=== PATIENT | male | born 1950 | race Caucasian/White ===

== ENCOUNTER 2025-04-14 06:33 | Inpatient (IN) ==
--- NOTE | 2025-04-01 09:12 | PAT Medication Instructions ---
Medication Instructions Date of Service April 01, 2025 Home Medications amlodipine 2.5 mg tablet 2.5 mg PO QAM aspirin 81 mg capsule 81 mg PO HS atenolol 25 mg tablet 12.5 mg PO HS cholecalciferol (vitamin D3) 125 mcg (5,000 unit) tablet (Vitamin D3) 125 mcg PO DAILY evolocumab 140 mg/mL subcutaneous pen injector (Repatha SureClick) 140 mg subcut MO metformin 500 mg tablet 500 mg PO HS pantoprazole 40 mg tablet,delayed release 40 mg PO QAM ASK your prescriber and surgeon aspirin 81 mg capsule 81 mg PO HS evolocumab 140 mg/mL subcutaneous pen injector (Repatha SureClick) 140 mg subcut MO DO NOT take the morning of surgery cholecalciferol (vitamin D3) 125 mcg (5,000 unit) tablet (Vitamin D3) 125 mcg PO DAILY Take morning of surgery With a small sip of water, OTHERWISE NOTHING TO EAT OR DRINK AFTER MIDNIGHT: amlodipine 2.5 mg tablet 2.5 mg PO QAM pantoprazole 40 mg tablet,delayed release 40 mg PO QAM Take evening before surgery atenolol 25 mg tablet 12.5 mg PO HS metformin 500 mg tablet 500 mg PO HS Other Notes If you have any questions please call us at [phone] or [phone] or [phone] or [phone]
--- NOTE | 2025-04-05 08:25 | Anesthesiology Consultation ---
Date of Service April 05, 2025 Assessment & Plan (1) Encounter for pre-operative examination: Chart Review Chart Review: Acceptable Risk for Surgery (pending surgeon ordered PCP clearance ) and Patient seen in Pre Admission Testing - Awaiting PCP clearance 04/07/25 ([facility]) - please fax preop testing to PCP for review - Check BSG AM DOS Per PAT appt on 04/05/25, patient with recent cold (symptoms began 03/25/25- cough has resolved, only mild residual congestion (improving) per patient. No recent illness/disease exposures, or recent illness/disease positive tests. Will leave to surgeon's discretion if preop Covid testing needed. Symptom onset >11 days from DOS. Symptoms improving. Patient educated symptoms will need resolved by DOS Cardio Clearance letter 03/16/25= " "Intermediate cardiac risk" for upcoming procedure. Hold ASA for three days." Cardiology office visit 03/15/25= "follow up appointment... CAD... 60-65% stenosis in ostial RCA with nonobstructive disease in the LAD and diagonal...denies any symptoms of ACS... all testing and medications reviewed with patient... recommend ECHO and carotid ultrasound and follow in one year..." History Surgery Operation Date: 04/14/25 10:35 Proposed Procedures p L3-S1 Decompression and Fusion - Eugene Scanlon DO Height/Weight Height: 5 ft 9 in Weight: 85.1 kg Allergies Allergy/AdvReac Type Severity Reaction Status Date / Time No Known Allergies Allergy Verified 09/03/02 17:49 BEE STINGS-HIVES Allergy Unknown Uncoded 09/03/02 17:56 Medications Home Medications Medication Instructions Recorded Confirmed Last Taken amlodipine 2.5 mg tablet 2.5 mg PO QAM 04/01/25 04/01/25 Unknown aspirin 81 mg capsule 81 mg PO HS 04/01/25 04/01/25 Unknown atenolol 25 mg tablet 12.5 mg PO HS 04/01/25 04/01/25 Unknown cholecalciferol (vitamin D3) 125 125 mcg PO DAILY 04/01/25 04/01/25 Unknown mcg (5,000 unit) tablet (Vitamin D3) evolocumab 140 mg/mL subcutaneous 140 mg subcut MO 04/01/25 04/01/25 Unknown pen injector (Repatha SureClick) metformin 500 mg tablet 500 mg PO HS 04/01/25 04/01/25 Unknown pantoprazole 40 mg tablet,delayed 40 mg PO QAM 04/01/25 04/01/25 Unknown release Past Medical History Medical History (Updated 04/05/25 @ 08:22 by Avis Dutta PA-C) Teixeira esophagus follows routinely with EGDs CAD (coronary artery disease) - 60-65% stenosis in the ostial RCA with non obstructive disease in the LAD and diagonal per 2022 cardiac cath per cardio records Carotid artery disease <50% stenosis to bilateral ICAs per 01/2025 carotid doppler Chronic rhinitis Dyslipidemia Environmental and seasonal allergies GERD (gastroesophageal reflux disease) well controlled and stable with pantoprazole History of prostate cancer 2010- s/p prostatectomy - no chemo or XRT HTN (hypertension) Low back pain radiating down bilat legs Pre-diabetes on Metformin Exercise / Class Metabolic Activity II 4-5 Yardwork/Stairs/Walk up hill (one flight of stairs- no chest pain or SOB ) Past Surgical History Surgical History Hx of cardiac catheterization unsure thinks no stents, "contact cardio office" Hx of cholecystectomy Hx of colonoscopy Hx of prostatectomy 2010 Hx of right knee surgery meniscus repair Hx of shoulder surgery x 3 Past Anesthesia History No Hx of Anesthesia Complications (with exception to extra grogginess with last surgery (shoulder surgery- 2019)) and No Family Hx of Anesthesia Complications History of PONV No Hx of PONV and No Hx of Motion Sickness Social History Smoking Status: Never smoker Do You Dip or Chew Tobacco: No Hx Alcohol Use: Yes Alcohol type: wine alcohol intake frequency: holidays/special occasions only Hx Substance Use: No substance use type: does not use Review of Systems - Congestion- cold symptoms since 03/25/25- cough resolved. - Hx of snoring - hx of sleep study many years ago- no JOSEFA at that time Patient denies chest pain, shortness of breath, dyspnea on exertion, wheezing, palpitations. No hx of seizures, stroke, OK. No hx of blood clots or blood transfusions Physical Exam Vital Signs VITALS BP 162/86 (usually well controlled per patient - usually 120-130s/80s) P 62 TEMP 97.6 SP02 97% RES 16P Constitutional no acute distress ENMT Mouth: no TMJ clicking Thyromental Distance: > or= 3.5 Finger Breadths (3.5) Mallampati Class: II Missing molars Crowns to side teeth and crowns Neck + limited neck extension Respiratory normal respiratory effort; no respiratory distress Auscultation: lungs clear to auscultation bilaterally; no wheezes Cardiovascular Rate/Rhythm: regular rate and regular rhythm Heart Sounds: no murmur Vessels: no carotid bruit Heart sounds diminished throughout Musculoskeletal Spine: no pain with cervical ROM Extremities: extremities normal to inspection Psychiatric Orientation: alert Lab Results Anesthesia Preop Results Results Anesthesia Widget: WBC 5.19 K/ul (4.8-10.8) 04/05/25 Hgb 15.7 g/dl (14.0-18.0) 04/05/25 Hct 45.7 % (42.0-52.0) 04/05/25 Plt 204 K/uL (130-400) 04/05/25 Na 138 mmol/L (136-145) 04/05/25 K 5.0 mmol/L (3.5-5.1) 04/05/25 Cl 103 mmol/L (98-107) 04/05/25 CO2 32 mmol/L (21-32) 04/05/25 BUN 21 mg/dl (6-23) 04/05/25 Creat 0.90 mg/dl (0.6-1.4) 04/05/25 Glucose Level 109 mg/dl (70-99(Fasting)) H 04/05/25 PT 10.4 Seconds (9.0-12.0) 04/05/25 PTT 28 Seconds (21-31) 04/05/25 INR 1.0 (0.9-1.1) 04/05/25 HA1c 5.6 % (4.5-5.6) 04/05/25 Urine Color Yellow 04/05/25 Urine Appearance Clear (Clear) 04/05/25 Urine pH 5.5 (4.5-7.5) 04/05/25 Urine Specific [place] 1.021 (1.000-1.030) 04/05/25 Urine Protein Trace (Negative) H 04/05/25 Urine Glucose (UA) Negative (Negative) 04/05/25 Urine Ketones Negative (Negative) 04/05/25 Urine Blood Negative (Negative) 04/05/25 Urine Nitrite Negative (Negative) 04/05/25 Urine Bilirubin Negative (Negative) 04/05/25 Urine Urobilinogen Negative (Negative) 04/05/25 Urine Leukocyte Esterase Negative (Negative) 04/05/25 Urine WBC (Auto) 0-5 /hpf (0-5) 04/05/25 Urine RBC (Auto) 0-2 /hpf (0-2) 04/05/25 Urine Hyaline Casts (Auto) 0-2 /lpf (0-2) 04/05/25 Urine Epithelial Cells (Auto) 0-2 /hpf (0-2) 04/05/25 Urine Bacteria (Auto) None Seen (None Seen) 04/05/25 Blood Type A Positive 04/05/25 Antibody Screen NEGATIVE 04/05/25 Testing Electrocardiogram Date: 03/15/25 Sinus rhythm (slow) Right superior axis deviation Septal infarct Marked intraventricular conduction delay Marked left precordial repolarization disturbance, consider ischemia (EKG done at cardio visit 03/15/25. Per cardio note 03/15/25= "EKG shows sinus bradycardia with 1st degree AV block, right bundle branch block, nonspecific ST- T wave changes.") Chest X-Ray Date: 04/05/25 FINDINGS: Heart size and pulmonary vasculature are normal. There is moderate elevation of the right hemidiaphragm. There is mild stranding at the right lung base consistent with atelectasis. No other consolidation or pleural effusion. No pneumothorax. IMPRESSION: Moderate elevation of the right hemidiaphragm with mild atelectasis at the right lung base. Echocardiogram Date: 02/05/25 Mild asymmetric septal LVH LV function normal. EF 50-55% Moderate MR, mild to moderate TR, and trace ID Normal pulmonary artery pressures Grade 1 DD (Discussed with Dr Vargas- mild asymmetric hypertrophy- EF WNL, follows routinely with cardiology, approved for upcoming surgery by cardio- patient can proceed as scheduled) Cardiac Catheterization Date: 11/09/22 LM- angiographically normal LAD- 40% second diagonal LCx- 20-30% stenosis RCA- 60-70% stenosis Moderate, nonobstructive CAD. IFR proven nonobstructive disease of RCA with IFR of 0.98. Normal left sided filling pressure. No aortic stenosis Other Testing Carotid ultrasound 02/08/2025 = Right ICA mild, consistent with <50% stenosis. Left ICA mildconsistent with less than 50% stenosis. Bilateral vertebral arteries are patent and antegrade.
[2025-04-14] MEDS ORDERED: DEXAMETHASONE SOD INJ 4 MG/ML VIAL ONE (06:51)
[2025-04-14] MEDS ORDERED: PROPOFOL IV EMULSION 10 MG/ML 20 ML VIAL IV ONE (06:51)
[2025-04-14] MEDS ORDERED: LIDOCAINE 2% 2 ML VIAL/AMP(20MG/ML) INFIL ONE (06:51)
[2025-04-14] MEDS ORDERED: ONDANSETRON INJ 2 MG/ML 2 ML VIAL ONE (06:51)
[2025-04-14] MEDS ORDERED: ROCURONIUM BROMIDE 10 MG/ML 5 ML VIAL IV ONE ×2 (06:51→13:42)
[2025-04-14] MEDS ORDERED: MIDAZOLAM HCL 1 MG/ML 2ML VIAL ONE (06:52)
[2025-04-14] MEDS ORDERED: ONDANSETRON INJ 2 MG/ML 2 ML VIAL IV PRN ×2 (07:18→13:27)
[2025-04-14] MEDS ORDERED: ATROPINE SULFATE 0.1 MG/ML 10ML SYR IV PRN (07:18)
[2025-04-14] MEDS ORDERED: HYDROmorphone INJ 1 MG/ML SYRINGE IV PRN ×2 (07:18→13:27)
[2025-04-14] MEDS: LR 60ML/HR IV SCH (07:25)
[2025-04-14] MEDS: GABAPENTIN 300 MG CAP PO SCH (07:29)
[2025-04-14] MEDS: ACETAMINOPHEN 500 MG TAB PO SCH (07:29)
[2025-04-14] MEDS: CeleBREX 200 MG CAP PO SCH (07:29)
[2025-04-14] MEDS: LR 15ML/HR IV SCH (07:29)
--- NOTE | 2025-04-14 07:43 | History & Physical Bridge Note ---
Date of Service April 14, 2025 History & Physical Bridge Note I have examined the patient, reviewed the History & Physical and in the interval since the performance of the History & Physical I have noted the following changes of clinical significance: no changes noted
--- NOTE | 2025-04-14 07:44 | History & Physical Report ---
Date of Service April 14, 2025 Assessment & Plan (1) Multilevel lumbosacral spondylosis with radiculopathy: Plan: L3-S1 decompression and fusion History of Present Illness Chief Complaint: Back and leg pain Primary Care Provider: NO PCP This is a 74-year-old male who presents for chronic persistent back and leg pain after failing course of nonoperative care is here for surgical invention. Allergies Allergy/AdvReac Type Severity Reaction Status Date / Time No Known Allergies Allergy Verified 04/14/25 06:51 BEE STINGS-HIVES Allergy Unknown Uncoded 04/14/25 06:51 Home Medications Medication Instructions Recorded Confirmed Type amlodipine 2.5 mg tablet 2.5 mg PO QAM 04/01/25 04/14/25 History aspirin 81 mg capsule 81 mg PO HS 04/01/25 04/14/25 History atenolol 25 mg tablet 12.5 mg PO HS 04/01/25 04/14/25 History cholecalciferol (vitamin D3) 125 125 mcg PO DAILY 04/01/25 04/14/25 History mcg (5,000 unit) tablet (Vitamin D3) evolocumab 140 mg/mL subcutaneous 140 mg subcut MO 04/01/25 04/14/25 History pen injector (Repatha SureClick) metformin 500 mg tablet 500 mg PO HS 04/01/25 04/14/25 History pantoprazole 40 mg tablet,delayed 40 mg PO QAM 04/01/25 04/14/25 History release Past Med/Surg History Problem List (Updated 04/14/25 @ 07:44 by Eugene Scanlon DO) Multilevel lumbosacral spondylosis with radiculopathy Encounter for pre-operative examination Medical History (Updated 04/14/25 @ 07:44 by Eugene Scanlon DO) GERD (gastroesophageal reflux disease) well controlled and stable with pantoprazole Carotid artery disease <50% stenosis to bilateral ICAs per 01/2025 carotid doppler CAD (coronary artery disease) - 60-65% stenosis in the ostial RCA with non obstructive disease in the LAD and diagonal per 2022 cardiac cath per cardio records Low back pain radiating down bilat legs Dyslipidemia Teixeira esophagus follows routinely with EGDs HTN (hypertension) Pre-diabetes on Metformin Chronic rhinitis Environmental and seasonal allergies History of prostate cancer 2010- s/p prostatectomy - no chemo or XRT Surgical History Hx of cardiac catheterization unsure thinks no stents, "contact cardio office" Hx of colonoscopy Hx of right knee surgery meniscus repair Hx of shoulder surgery x 3 Hx of cholecystectomy Hx of prostatectomy 2010 Social History Smoking Status: Never smoker Second Hand Exposure: No; Do You Dip or Chew Tobacco: No; Tobacco Cessation Education Requested by Patient: No Hx Alcohol Use: Yes Alcohol type: wine Hx Substance Use: No Preferred Language: Portuguese Communication Ability: Effective Child Care Attendant Required: No Beliefs That Will Affect Care: None Current Living Situation: Spouse Other Information That Helps Us Care for You: No Feels Safe at Home: Yes Safety Concerns: Feels Safe At This Time Assistive Devices: Glasses Physical Exam Physical Exam: Patient alert and oriented Heart regular rhythm Lungs clear Results & Data Results & Data Vital Signs (Past 12 Hours) Vital Signs Temp Pulse Resp BP Pulse Ox O2 Del Method 04/14/25 06:55 37.1 C 56 L 18 182/96 H 97 Room Air
[2025-04-14] MEDS ORDERED: HYDROmorphone INJ 2 MG/ML SYR/VIAL ONE (08:14)
[2025-04-14] MEDS: BUPIVACAINE/EPINEPHRINE 0.25% 1:200,000 30 ML VIAL ONE (08:18)
[2025-04-14] MEDS: ceFAZolin 330 MG/ML 1 GM VIAL ONE (09:59)
[2025-04-14] MEDS ORDERED: PHENYLEPHRINE 100MCG/ML 5ML SYR ONE (10:01)
[2025-04-14] MEDS ORDERED: SUGAMMADEX SODIUM 200 MG/2 ML VIAL IV ONE (10:01)
--- NOTE | 2025-04-14 10:16 | Operative Report ---
Post Operative Report Pre & Post Diagnosis Operation Date: 04/14/25 07:45 Pre-Op Diagnosis: #1 multilevel lumbosacral spondylosis with radiculopathy #2 lumbar spinal stenosis Post-Op Diagnosis: Same I identified the patient and participated in the time-out.: Yes Procedure Operation Date: 04/14/25 07:45 Actual Procedures #1 lumbar decompression with bilateral medial facetectomies and foraminotomies L2-L3, L3-L4 and L4-5. #2 posterior spinal fusion L3-L5. #3 placement posterior instrumentation L3-L4 5 using camber. #4 interbody fusion L3-L4 L4-L5 . #5 placement Spira 14 x 26 mm x 2 at L3-L4 and 14 x 26 mm x 2 at L4-L5. #6 placement of locally harvested morselized autograft in the posterior gutters. #7 placement of Proteus combined with Koros in the posterior lateral gutters and os design interbody space. #8 application of versa wrap of the exposed dura. Surgeon Eugene Scanlon, Manager Of Operations Tamia Anderson Estimated Blood Loss 350 Findings Consistent with Post-Op Diagnosis Specimens None Indications This is a 74-year-old male who presents with above-mentioned diagnosis after failing course of nonoperative care is here for surgical invention. Description of Procedure Patient was met with identified informed consent obtained. Patient was then taken to the operative suite underwent patient placed in a prone position on the Roland table top of the Joseph frame. All bony prominences well-padded eyes inspected to ensure no external pressure placed upon them. This point the lumbar spine was prepped and draped in normal sterile fashion. Sharp dissection with the assistance of Bovie cautery from down to and exposing the lamina and transverse processes of L4 3 L4-L5. From a caudal to cephalad fashion complete laminectomy of L4 and L3 was performed including bilateral medial facetectomies and foraminotomies and partial laminectomy of L2 with bilateral medial facetectomies to address all subarticular stenosis. Pedicle screws were then placed in L3-L4-L5 bilaterally with assistance of fluoroscopy and appropriate placed. By way the transforaminal approach on the right discectomy of L4-L5 was performed endplates guided to subcortical bone and bone and a 14 x 26 mm Spira cage tapped into position. Then proceeded to the left transforaminal region at L4-5. Again discectomy performed. Endplates guided to subcortical bleeding bone and a second 14 x 26 mm Spira cage tapped in position. Then proceeded to L3-L4 and bilateral transforaminal approach on the left discectomy performed. Endplates guided to subcortical and bone and a 14 x 26 mm Spira cage tapped in position. Then proceeded to the right transforaminal region at L3-L4. Again discectomy performed. Endplates guided to subcortically bone and a second 14 x 26 mm Spira cage tapped in position. Please note all cages were packed with os design bone graft. The rods were then compressed locked into final position bilaterally. The transverse processes of L3 L4-5 burred to subcortical bleeding bone. Proteus combined with Koros and local autograft placed in posterolateral gutters. Versa wrap placed of exposed dura. 15 round HAILEY drain inserted. The incision was then closed with 1 Vicryl the fascia 2-0 Vicryl subcutaneously and 4-0 Monocryl for final skin closure. Steri-Strips and sterile dressing placed. Patient waken taken PACU stable condition. Please note Tamia Anderson was present throughout the entire procedure and found the patient positioning complex portions of the procedure and final skin closure. I attest to the content of the Intraoperative Record and any orders documented therein. Any exceptions are noted below.
--- NOTE | 2025-04-14 10:18 | Fluoroscopy Report ---
FL lumbar spine 2-3V CLINICAL HISTORY: L3-S1 DECOMP AND FUSION COMPARISON STUDY: None FLUOROSCOPY TIME: 16 seconds FLUOROSCOPY IMAGES: 2 EXPOSURE DOSE: 17 mGy FINDINGS: Fluoroscopy was provided for lower lumbar fusion. IMPRESSION: Intraoperative fluoroscopy. ACT 112: Negative or not required by law. Electronically signed by: Jesse Wiggins M.D. 04/14/2025 10:17 AM
--- NOTE | 2025-04-14 11:07 | Anesthesiology Progress Note ---
Date of Service April 14, 2025 Anesthesia Post Procedure Vital Signs Vital Signs: Temp Pulse Pulse Resp BP Pulse Ox O2 Del Method 04/14/25 11:05 75 12 140/71 93 Room Air 04/14/25 10:50 36.5 C 70 18 136/77 92 Room Air 04/14/25 10:40 72 12 140/78 92 Oxymask 04/14/25 10:30 70 14 146/68 H 97 Oxymask 04/14/25 10:22 36.5 C 72 12 164/76 H 97 Oxymask 04/14/25 06:55 37.1 C 56 L 18 182/96 H 97 Room Air O2 Flow Rate 04/14/25 11:05 0 04/14/25 10:50 0 04/14/25 10:40 4 04/14/25 10:30 4 04/14/25 10:22 4 04/14/25 06:55 Pain Intensity Back: Pain Intensity: 2 Transfer of Care Handoff Completed per policy Notes Mental Status: alert / awake / arousable and participated in evaluation Patient Amnestic to Procedure: Yes Nausea / Vomiting: adequately controlled Pain: adequately controlled Airway Patency, RR, SpO2: stable & adequate BP & HR: stable & adequate Hydration State: stable & adequate Anesthetic Complications: no major complications apparent and Pt Satisfied with anesthetic care
[2025-04-14] MEDS ORDERED: diphenhydrAMINE Capsule 25 MG CAP PO PRN (13:27)
[2025-04-14] MEDS ORDERED: DO NOT ADMINISTER PNEUMOCOCCAL VACCINE PRN (13:27)
[2025-04-14] MEDS ORDERED: SOD PHOSPHATE/SOD BIPHOSPHATE ENEMA 132 ML BTL PR PRN (13:27)
[2025-04-14] MEDS ORDERED: ALUMINUM/MAGNESIUM SUSP 30 ML UDC PO PRN (13:27)
[2025-04-14] MEDS ORDERED: NALOXONE HCL 0.4 MG/1 ML VIAL/CARP IV PRN (13:27)
[2025-04-14] MEDS ORDERED: MAGNESIUM HYDROXIDE SUSP 30 ML UDC PO PRN (13:27)
[2025-04-14] MEDS ORDERED: DO NOT ADMINISTER FLU VACCINE PRN (13:27)
[2025-04-14] MEDS ORDERED: PHARMACY GLYCEMIC MGMT CONSULT PRN (13:27)
[2025-04-14] MEDS ORDERED: HYDROmorphone INJ 0.5 MG/0.5 ML SYR IV PRN (13:27)
[2025-04-14] MEDS ORDERED: FAMOTIDINE 20 MG TAB PO PRN (13:27)
[2025-04-14] MEDS ORDERED: ONDANSETRON 4 MG OD TAB PO PRN (13:27)
[2025-04-14] MEDS ORDERED: ACETAMINOPHEN 1,000 MG/100 ML VIAL IV PRN (13:27)
[2025-04-14] MEDS ORDERED: PROMETHAZINE 12.5 MG/50.5 ML BAG IV PRN (13:27)
[2025-04-14] MEDS ORDERED: LORazepam 0.5 MG TAB PO PRN (13:27)
[2025-04-14] MEDS ORDERED: METOCLOPRAMIDE HCL INJ 5 MG/ML 2 ML VIAL IV PRN (13:27)
[2025-04-14] MEDS ORDERED: DEXTROSE 50% 50 ML SYRINGE IV PRN (14:00)
[2025-04-14] MEDS ORDERED: GLUCAGON FOR INJ 1 MG VIAL SQ PRN (14:00)
[2025-04-14] MEDS ORDERED: GLUCOSE 10 TAB/TUBE PO PRN (14:00)
[2025-04-14] MEDS ORDERED: GLUCOSE 40% GEL 15 GM TUBE PO PRN (14:00)
[2025-04-14] MEDS ORDERED: CARBOHYDRATES FOR HYPOGLYCEMIA PO PRN (14:00)
--- NOTE | 2025-04-14 14:06 | Pharmacy Report ---
Pharmacy Glycemic Short Note 2 - Date of Service April 14, 2025 - Glycemic Short BSG Results (Last 24 hours): 04/14/25 12:36 POC Glucose 168 H OUTPATIENT ANTIDIABETIC REGIMEN: * metformin 500 mg po hs ASSESSMENT: * 74 year old s/p surgery, POD - 0. Pharmacy consulted for glycemic management. Patient only on metformin outpatient. Postop BSG 168 mg/dL - did receive IV dexamethasone intraoperatively and then ordered daily tomorrow AM. Will start with novolog and add scale on for Lantus at HS to be given only if BSGs trending up from steroids. PLAN FOR INPATIENT GLYCEMIC CONTROL: * Hold outpatient oral diabetes medications * Basal insulin * Lantus 0-12 units HS (give if BSG >180) * Bolus insulin * NovoLog per scale ACHS or Q6hrs while NPO * Goal Range: Low 110 mg/dL - High 140 mg/dL * Correction Factor: 25 mg/dL/unit * Nutritional / Prandial insulin per carb ratio of 1 unit per 8 grams CHO consumed
[2025-04-14] MEDS: FLOSEAL HEMOSTATIC MATRIX 10ML TOP ONE (15:03)
[2025-04-14] MEDS: LACTATED RINGER'S 1,000 ML IV SCH (15:37)
--- NOTE | 2025-04-14 17:15 | Consultation ---
Date of Consultation April 14, 2025 Assessment & Plan (1) GERD (gastroesophageal reflux disease): (2) Carotid artery disease: (3) CAD (coronary artery disease): (4) Low back pain: (5) Dyslipidemia: (6) Teixeira esophagus: (7) HTN (hypertension): (8) Pre-diabetes: Plan Patient is a 74-year-old male who presented to the hospital on 04/14/2025 s/p lumbar decompression and fusion Lumbar radiculopathy S/p lumbar Lami with decompression 04/14 PT/OT/DVT prophylaxis per primary team Pain control Hx HTN: Continue amlodipine/atenolol Hx GERD: Continue pantoprazole Hx CAD: Continue aspirin Hx prediabetes: Sugar acceptable, hold metformin while hospitalized We will follow along with you throughout this hospitalization A total 35 minutes was spent on chart review/reviewing diagnostic data/facilitating plan of care/discussion with consultants Full code DVT prophylaxis: Per primary team History of Present Illness Requesting Physician: Dr. Eugene Scanlon Reason for Consultation: Postop medical management Attending Physician: Eugene Scanlon, History of Present Illness The patient is a 74-year-old male with a past medical history of CAD, HLD, prediabetes, lumbar radiculopathy who presents to the hospital on 04/10/2025 s/p L3-S1 Lami with decompression with Dr. Scanlon. We are asked to see the patient for postop medical management On exam, patient reports pain is controlled. Denies any shortness of breath or chest pain. Denies any nausea/vomiting/diarrhea. Allergies Allergy/AdvReac Type Severity Reaction Status Date / Time No Known Allergies Allergy Verified 04/14/25 06:51 BEE STINGS-HIVES Allergy Unknown Uncoded 04/14/25 06:51 Home Medications Medication Instructions Recorded Confirmed Type amlodipine 2.5 mg tablet 2.5 mg PO QAM 04/01/25 04/14/25 History aspirin 81 mg capsule 81 mg PO HS 04/01/25 04/14/25 History atenolol 25 mg tablet 12.5 mg PO HS 04/01/25 04/14/25 History cholecalciferol (vitamin D3) 125 125 mcg PO DAILY 04/01/25 04/14/25 History mcg (5,000 unit) tablet (Vitamin D3) evolocumab 140 mg/mL subcutaneous 140 mg subcut MO 04/01/25 04/14/25 History pen injector (shahnaz Ortega) metformin 500 mg tablet 500 mg PO HS 04/01/25 04/14/25 History pantoprazole 40 mg tablet,delayed 40 mg PO QAM 04/01/25 04/14/25 History release oxycodone 5 mg tablet 5 mg PO Q6H PRN pain #30 tabs 04/14/25 Rx tramadol 50 mg tablet 50 mg PO Q6H PRN pain, moderate 04/14/25 Rx #30 tabs Patient History Medical History (Updated 04/14/25 @ 07:44 by Eugene Scanlon DO) GERD (gastroesophageal reflux disease) well controlled and stable with pantoprazole Carotid artery disease <50% stenosis to bilateral ICAs per 01/2025 carotid doppler CAD (coronary artery disease) - 60-65% stenosis in the ostial RCA with non obstructive disease in the LAD and diagonal per 2022 cardiac cath per cardio records Low back pain radiating down bilat legs Dyslipidemia Teixeira esophagus follows routinely with EGDs HTN (hypertension) Pre-diabetes on Metformin Chronic rhinitis Environmental and seasonal allergies History of prostate cancer 2010- s/p prostatectomy - no chemo or XRT Surgical History Hx of cardiac catheterization unsure thinks no stents, "contact cardio office" Hx of colonoscopy Hx of right knee surgery meniscus repair Hx of shoulder surgery x 3 Hx of cholecystectomy Hx of prostatectomy 2010 Social History Smoking Status: Never smoker Second Hand Exposure: No; Do You Dip or Chew Tobacco: No; Tobacco Cessation Education Requested by Patient: No Hx Alcohol Use: Yes Alcohol type: wine Hx Substance Use: No Preferred Language: Latvian Communication Ability: Effective Interactive Producer Required: No Beliefs That Will Affect Care: None Current Living Situation: Spouse Other Information That Helps Us Care for You: No Feels Safe at Home: Yes Safety Concerns: Feels Safe At This Time Assistive Devices: Cane and Walker Review of Systems Review of Systems: All systems reviewed & are unremarkable except as noted in HPI & below Physical Exam Constitutional: WD/WN, vitals as above Eyes: PERRL, conjunctivae normal, anicteric sclerae ENMT: external ear and nose normal, oropharynx normal Respiratory: normal respiratory effort, lungs clear to auscultation Cardiovascular: RRR, no murmur, no edema Gastrointestinal (Abdomen): normal bowel sounds, soft, nontender, no hepatosplenomegaly Musculoskeletal: no cyanosis or clubbing, extremities motor strength 5/5 Skin: no rashes, warm and dry Neurologic: PERRL, EOMI, accommodation nl, no face palsy, no dysarthria Psychiatric: A+Ox3, euthymic affect Lymphatic: no cervical or axillary lymphadenopathy Results & Data Vital Signs (Past 12 Hours) Vital Signs Temp Pulse Pulse Resp BP Pulse Ox O2 Del Method 04/14/25 13:27 36.5 C 77 145/80 H 97 Nasal Cannula 04/14/25 12:20 78 9 L 144/80 H 93 Room Air 04/14/25 11:50 84 18 144/79 H 95 Nasal Cannula 04/14/25 11:35 81 16 131/70 95 Nasal Cannula 04/14/25 11:20 76 12 150/73 H 96 Nasal Cannula 04/14/25 11:05 75 12 140/71 93 Room Air 04/14/25 10:50 36.5 C 70 18 136/77 92 Room Air 04/14/25 10:40 72 12 140/78 92 Oxymask 04/14/25 10:30 70 14 146/68 H 97 Oxymask 04/14/25 10:22 36.5 C 72 12 164/76 H 97 Oxymask 04/14/25 06:55 37.1 C 56 L 18 182/96 H 97 Room Air O2 Flow Rate 04/14/25 13:27 04/14/25 12:20 0 04/14/25 11:50 2 04/14/25 11:35 2 04/14/25 11:20 2 04/14/25 11:05 0 04/14/25 10:50 0 04/14/25 10:40 4 04/14/25 10:30 4 04/14/25 10:22 4 04/14/25 06:55 Laboratory Results Laboratory Results POC Glucose 177 mg/dl (70-99) H 04/14/25 16:26 Blood Type A Positive 04/14/25 06:37 Antibody Screen NEGATIVE 04/14/25 06:37 Crossmatch See Detail 04/14/25 06:37 Impressions Lumbar Spine X-Ray 04/14/25 07:45 FL lumbar spine 2-3V CLINICAL HISTORY: L3-S1 DECOMP AND FUSION COMPARISON STUDY: None FLUOROSCOPY TIME: 16 seconds FLUOROSCOPY IMAGES: 2 EXPOSURE DOSE: 17 mGy FINDINGS: Fluoroscopy was provided for lower lumbar fusion. IMPRESSION: Intraoperative fluoroscopy. ACT 112: Negative or not required by law. Electronically signed by: Jesse Wiggins M.D. 04/14/2025 10:17 AM
[2025-04-14] MEDS: INSULIN ASPART PER UNIT CHARGE SC SCH (18:04)
[2025-04-14] MEDS: DOCUSATE SODIUM/SENNA 50/8.6MG TAB PO SCH (20:31)
[2025-04-14] MEDS: ATENOLOL 25 MG TABLET PO SCH (20:31)
[2025-04-14] MEDS: ASPIRIN 81 MG ECTAB PO SCH (20:31)
[2025-04-14] MEDS: LANTUS PER UNIT CHARGE SC SCH (20:32)
[2025-04-15] MEDS: POLYETHYLENE (MIRALAX) 17 GM PACK PO SCH (06:17)
[2025-04-15 08:05] LABS: Hematocrit (blood only) 35.7 % (42.0-52.0); Hemoglobin 12.2 g/dl (14.0-18.0); Immature Granulocytes # (auto) 0.05 K/uL (0.01-0.20); Immature Granulocytes % (auto) 0.4 %; Mean Corpuscular Hemoglobin 30.9 pg (25.0-34.0); Mean Corpuscular Volume 90.4 fL (80.0-100.0); Platelet Count 180 K/uL (130-400); RDW Standard Deviation 41.2 fL (36.4-46.3); Red Blood Count 3.95 M/uL (4.70-6.10); White Blood Count 12.59 K/ul (4.8-10.8)
[2025-04-15] MEDS: CHOLECALCIFEROL 125 MCG (5,000 UNITS) TAB PO SCH (08:20)
[2025-04-15] MEDS: dexAMETHasone 6 MG in SYRINGE 0 ML IV SCH (08:21)
[2025-04-15 08:51] LABS: Anion Gap 3.0 (3-11); Blood Urea Nitrogen 19.0 mg/dl (6-23); Calcium 8.6 mg/dl (8.6-10.3); Carbon Dioxide 31.0 mmol/L (21-32); Chloride 101.0 mmol/L (98-107); Creatinine Clr Calc Pharmacy 82.9 ml/min; Glucose 143.0 mg/dl (70-99(Fasting)); Potassium 4.5 mmol/L (3.5-5.1); Sodium 135.0 mmol/L (136-145)
--- NOTE | 2025-04-15 10:41 | Orthopedic Progress Note ---
Date of Service April 15, 2025 Assessment & Plan (1) Multilevel lumbosacral spondylosis with radiculopathy: Plan: This time we will continue physical therapy monitor his HAILEY output over discharge home the next few days. Admission and Anticipated Discharge Date Admission Date: April 14, 2025 Subjective Back pain controlled leg symptoms improved Physical Exam Physical Exam: Patient is in the chair at the bedside. She comfortably does consent to testing. Results & Data Vital Signs (Past 12 Hours) Vital Signs Temp Pulse Resp BP Pulse Ox O2 Del Method 04/15/25 07:21 36.8 C 62 16 119/67 94 Room Air 04/15/25 03:00 36.7 C 68 16 119/66 94 Room Air 04/14/25 22:55 36.5 C 76 16 104/60 93 Room Air
--- NOTE | 2025-04-15 15:26 | Hospitalist Progress Note ---
Date of Service April 15, 2025 Assessment & Plan (1) GERD (gastroesophageal reflux disease): (2) Carotid artery disease: (3) CAD (coronary artery disease): (4) Low back pain: (5) Dyslipidemia: (6) Teixeira esophagus: (7) HTN (hypertension): (8) Pre-diabetes: Plan Patient is a 74-year-old male who presented to the hospital on 04/14/2025 s/p lumbar decompression and fusion Lumbar radiculopathy S/p lumbar Lami with decompression 04/14 PT/OT/DVT prophylaxis per primary team Pain control Remains stable following the procedure Denies any radiculopathy pain Hx HTN: Continue amlodipine/atenolol Blood pressure remains on the lower side at 105/62 and heart rate is controlled Hx GERD: Continue pantoprazole Denies any symptoms Hx CAD: Continue aspirin Hx prediabetes: Sugar acceptable, hold metformin while hospitalized Remains medically stable with unremarkable labs We will follow along with you throughout this hospitalization Full code DVT prophylaxis: Per primary team Admission and Anticipated Discharge Date Admission Date: April 14, 2025 Subjective 04/15/2025 The patient was seen and examined in medical floor He is status post L3-S1 decompression and fusion Has been feeling much better following the procedure and denies any radiculopathic symptoms Review of Systems Review of Systems: All systems reviewed and are unremarkable except as noted below Physical Exam Physical Exam: Sitting on a chair without any acute distress Constitutional: well developed, well nourished and + ill appearing Eyes: PERRL, conjunctivae normal, anicteric sclerae ENMT: external ear and nose normal, oropharynx normal Neck: trachea midline, no thyromegaly Respiratory: no respiratory distress Auscultation: lungs clear to auscultation bilaterally Cardiovascular: Rate/Rhythm: regular rate and regular rhythm; not tachycardic Heart Sounds: normal S1 and normal S2; no murmur Extremities: no edema Gastrointestinal (Abdomen): Inspection/Auscultation: normal bowel sounds; abdomen not distended Percussion/Palpation: abdomen soft; abdomen nontender Musculoskeletal: No acute arthritis involving any of the joint Neurologic: normal touch/pain/proprioception and deep tendon reflexes 2+ bilaterally; no focal motor deficits Lymphatic: no cervical or axillary lymphadenopathy Results & Data Results & Data Vital Signs (Past 12 Hours) Vital Signs Temp Pulse Resp BP Pulse Ox O2 Del Method 04/15/25 14:46 36.7 C 62 16 105/62 92 Room Air 04/15/25 07:21 36.8 C 62 16 119/67 94 Room Air Laboratory Results Short CBC 04/15/25 Range/Units 07:38 WBC 12.59 H (4.8-10.8) K/ul Hgb 12.2 L (14.0-18.0) g/dl Hct 35.7 L (42.0-52.0) % Plt Count 180 (130-400) K/uL BMP 04/15/25 07:38 Sodium 135 L Potassium 4.5 Chloride 101 Carbon Dioxide 31 BUN 19 Creatinine 0.82 Glucose 143 H Calcium 8.6 531 appointment is Medications Administered Current Inpatient Medications Acetaminophen (Acetaminophen 500 Mg Tab) 1,000 mg PO Q8H PRN PRN Reason: MILD Pain (1,2,3) & Pre PT Stop: 05/14/25 13:26 Al Hydrox/Mg Hydrox/Simethicone (Aluminum/Magnesium Susp 30 Ml Udc) 30 ml PO Q6H PRN PRN Reason: Dyspepsia Stop: 05/14/25 13:26 Amlodipine Besylate (Amlodipine Besylate 5 Mg Tab) 2.5 mg PO QAM SMITH Stop: 05/15/25 08:59 Last Admin: 04/15/25 08:19 Dose: 2.5 mg Aspirin (Aspirin 81 Mg Ectab) 81 mg PO HS SMITH Stop: 05/14/25 20:59 Last Admin: 04/14/25 20:31 Dose: 81 mg Atenolol (Atenolol 25 Mg Tablet) 12.5 mg PO HS SMITH Stop: 05/14/25 20:59 Last Admin: 04/14/25 20:31 Dose: 12.5 mg Bisacodyl (Bisacodyl 10 Mg Supp) 10 mg HI DAILY PRN PRN Reason: Constipation Stop: 05/14/25 13:26 Dextrose (Dextrose 50% 50 Ml Syringe) 25 - 50 ml IV UD PRN; Protocol PRN Reason: Hypoglycemia Protocol Stop: 05/14/25 13:59 Diphenhydramine HCl (Diphenhydramine Capsule 25 Mg Cap) 25 mg PO Q6H PRN PRN Reason: Allergic Rhinitis/Insomnia Stop: 05/14/25 13:26 Famotidine (Famotidine 20 Mg Tab) 20 mg PO Q12H PRN PRN Reason: Dyspepsia Stop: 05/14/25 13:26 Glucagon (Glucagon For Inj 1 Mg Vial) 1 mg SQ UD PRN; Protocol PRN Reason: Hypoglycemia Protocol Stop: 05/14/25 13:59 Glucose (Glucose 40% Gel 15 Gm Tube) 15 - 30 gm PO UD PRN; Protocol PRN Reason: Hypoglycemia Protocol Stop: 05/14/25 13:59 Glucose (Glucose 10 Tab/Tube) 4 - 8 tab PO UD PRN; Protocol PRN Reason: Hypoglycemia Protocol Stop: 05/14/25 13:59 Hydromorphone HCl (Hydromorphone Inj 0.5 Mg/0.5 Ml Syr) 0.5 mg IV Q3H PRN PRN Reason: MODERATE Pain(4,5,6)/Pre PT Stop: 04/28/25 13:26 Hydromorphone HCl (Hydromorphone Inj 1 Mg/Ml Syringe) 1 mg IV Q3H PRN PRN Reason: SEVERE Pain (7,8,9,10) Stop: 04/28/25 13:26 Hydroxyzine HCl (Hydroxyzine Hcl 25 Mg Tab) 25 mg PO Q8H PRN PRN Reason: Anxiety Stop: 05/14/25 13:26 Cefazolin Sodium (Ancef 2000mg) 2,000 mg in 15 mls @ 3.75 mls/min IV Q8H SMITH; Protocol Stop: 04/17/25 09:03 Last Admin: 04/15/25 08:42 Dose: 3.75 mls/min Promethazine HCl (Phenergan) 12.5 mg in 50.5 mls @ 202 mls/hr IV Q6H PRN PRN Reason: Nausea And Vomiting Stop: 05/14/25 13:26 Dexamethasone 6 mg/ Syringe 1.5 mls @ 1 mls/min IV DAILY SMITH Stop: 04/17/25 09:02 Last Admin: 04/15/25 08:21 Dose: 1 mls/min Influenza Virus Vaccine Quadrival (Do Not Administer Flu Vaccine) 1 each N/A PRN PRN PRN Reason: Notification Stop: 05/14/25 13:26 Insulin Aspart (Insulin Aspart Per Unit Charge) 0 units SC ACHS [facility] Stop: 05/14/25 16:29 Last Admin: 04/15/25 12:34 Dose: 10 units Insulin Glargine (Lantus Per Unit Charge) 0 units SC HS SMITH; Protocol Stop: 04/15/25 21:01 Lorazepam (Lorazepam 0.5 Mg Tab) 0.5 mg PO Q8H PRN PRN Reason: Sedation/Anxiety Stop: 05/14/25 13:26 Lorazepam (Lorazepam 2 Mg/1 Ml Vial) 0.5 mg IV Q8H PRN PRN Reason: Sedation/Anxiety Stop: 05/14/25 13:26 Magnesium Hydroxide (Magnesium Hydroxide Susp 30 Ml Udc) 30 ml PO Q24H PRN PRN Reason: Constipation Stop: 05/14/25 13:26 Metoclopramide HCl (Metoclopramide Hcl Inj 5 Mg/Ml 2 Ml Vial) 10 mg IV Q6H PRN PRN Reason: Nausea &/or Vomiting Stop: 05/14/25 13:26 Miscellaneous (Carbohydrates For Hypoglycemia ) 15 - 30 gm PO UD PRN PRN Reason: Hypoglycemia Treatment Stop: 05/14/25 13:59 Miscellaneous Information (Pharmacy Glycemic Mgmt Consult) 1 each N/A UD PRN PRN Reason: Consult Stop: 05/14/25 13:26 Naloxone HCl (Naloxone Hcl 0.4 Mg/1 Ml Vial/Carp) 0.1 mg IV Q5M PRN PRN Reason: Oversedation/Resp depression Stop: 05/14/25 13:26 Ondansetron HCl (Ondansetron Inj 2 Mg/Ml 2 Ml Vial) 4 mg IV Q6H PRN PRN Reason: Nausea &/or Vomiting Stop: 05/14/25 13:26 Ondansetron HCl (Ondansetron 4 Mg Od Tab) 4 mg PO Q6H PRN PRN Reason: Nausea Stop: 05/14/25 13:26 Oxycodone HCl (Oxycodone Hcl Ir 5 Mg Tab (Immediate Release)) 5 - 10 mg PO Q4H PRN PRN Reason: MOD/SEV Pain & Pre PT Stop: 04/28/25 13:26 Last Admin: 04/15/25 12:29 Dose: 10 mg Pantoprazole Sodium (Pantoprazole 40 Mg Tab) 40 mg PO QAM SMITH Stop: 05/15/25 08:59 Last Admin: 04/15/25 08:20 Dose: 40 mg Pneumococcal Polyvalent Vaccine (Do Not Administer Pneumococcal Vaccine) 1 each N/A PRN PRN PRN Reason: Notification Stop: 05/14/25 13:26 Polyethylene Glycol (Polyethylene (Miralax) 17 Gm Pack) 17 gm PO Q6 SMITH Stop: 05/15/25 05:59 Last Admin: 04/15/25 12:30 Dose: 17 gm Senna/Docusate Sodium (Docusate Sodium/Senna 50/8.6mg Tab) 2 tab PO HS SMITH Stop: 05/14/25 20:59 Last Admin: 04/14/25 20:31 Dose: 2 tab Sodium Biphosphate/Sodium Phosphate (Sod Phosphate/Sod Biphosphate Enema 132 Ml Btl) 132 ml HI ONE PRN PRN Reason: Constipation Stop: 05/14/25 13:26 Tramadol HCl (Tramadol Hcl 50 Mg Tablet) 50 - 100 mg PO Q4H PRN PRN Reason: MOD/SEV Pain & Pre PT Stop: 05/14/25 13:26 Vitamin D (Cholecalciferol 125 Mcg (5,000 Units) Tab) 125 mcg PO DAILY SMITH Stop: 05/15/25 08:59 Last Admin: 04/15/25 08:20 Dose: 125 mcg
[2025-04-15] MEDS: LANTUS PER UNIT CHARGE SC SCH (21:23)
[2025-04-16 06:51] LABS: Hematocrit (blood only) 33.9 % (42.0-52.0); Hemoglobin 12.2 g/dl (14.0-18.0); Immature Granulocytes # (auto) 0.09 K/uL (0.01-0.20); Immature Granulocytes % (auto) 0.7 %; Mean Corpuscular Hemoglobin 32.3 pg (25.0-34.0); Mean Corpuscular Volume 89.7 fL (80.0-100.0); Platelet Count 188 K/uL (130-400); RDW Standard Deviation 41.3 fL (36.4-46.3); Red Blood Count 3.78 M/uL (4.70-6.10); White Blood Count 13.83 K/ul (4.8-10.8)
[2025-04-16 07:12] LABS: Anion Gap 4.0 (3-11); Blood Urea Nitrogen 28.0 mg/dl (6-23); Calcium 8.7 mg/dl (8.6-10.3); Carbon Dioxide 28.0 mmol/L (21-32); Chloride 102.0 mmol/L (98-107); Creatinine Clr Calc Pharmacy 77.2 ml/min; Glucose 142.0 mg/dl (70-99(Fasting)); Potassium 4.9 mmol/L (3.5-5.1); Sodium 134.0 mmol/L (136-145)
[2025-04-16 07:54] VITALS: RESP 16
--- NOTE | 2025-04-16 10:20 | Pharmacy Report ---
Pharmacy Glycemic Short Note 2 - Date of Service April 16, 2025 - Glycemic Short BSG Results (Last 24 hours): 04/15/25 04/15/25 04/15/25 11:30 16:35 21:00 Glucose POC Glucose 143 H 154 H 126 H 04/16/25 04/16/25 06:10 07:35 Glucose 142 H POC Glucose 124 H OUTPATIENT ANTIDIABETIC REGIMEN: * metformin 500 mg po hs ASSESSMENT: 04/16: * Ravinder received 24 units of insulin yesterday, all were bolus. BSGs were [phone]/dL. * Fasting BSG was 124mg/dL. Dexamethasone 6mg IV daily ordered through tomorrow morning. Will continue HS Lantus scale through at least tomorrow evening. * Will continue bolus insulin regimen as previously ordered as blood sugar has been fairly well controlled. 04/14: * 74 year old s/p surgery, POD - 0. Pharmacy consulted for glycemic management. Patient only on metformin outpatient. Postop BSG 168 mg/dL - did receive IV dexamethasone intraoperatively and then ordered daily tomorrow AM. Will start with novolog and add scale on for Lantus at HS to be given only if BSGs trending up from steroids. PLAN FOR INPATIENT GLYCEMIC CONTROL: * Hold outpatient oral diabetes medications * Basal insulin * Lantus 0-10 units HS (give if BSG >180) * Bolus insulin * NovoLog per scale ACHS or Q6hrs while NPO * Goal Range: Low 110 mg/dL - High 140 mg/dL * Correction Factor: 25 mg/dL/unit * Nutritional / Prandial insulin per carb ratio of 1 unit per 8 grams CHO consumed
--- NOTE | 2025-04-16 12:24 | Orthopedic Progress Note ---
Date of Service April 16, 2025 Assessment & Plan (1) Multilevel lumbosacral spondylosis with radiculopathy: Plan: At this time we will continue physical therapy monitor his HAILEY output anticipate discharge home tomorrow. Admission and Anticipated Discharge Date Admission Date: April 14, 2025 Subjective Back pain controlled leg pain improved Physical Exam Physical Exam: Patient is in the chair at the bedside. Comfortable. Good strength testing. Results & Data Vital Signs (Past 12 Hours) Vital Signs Temp Pulse Resp BP Pulse Ox O2 Del Method 04/16/25 07:04 36.7 C 68 16 121/65 94 Room Air
--- NOTE | 2025-04-16 12:42 | Hospitalist Progress Note ---
Date of Service April 16, 2025 Assessment & Plan (1) GERD (gastroesophageal reflux disease): (2) Carotid artery disease: (3) CAD (coronary artery disease): (4) Low back pain: (5) Dyslipidemia: (6) Teixeira esophagus: (7) HTN (hypertension): (8) Pre-diabetes: Plan Patient is a 74-year-old male who presented to the hospital on 04/14/2025 s/p lumbar decompression and fusion Lumbar radiculopathy S/p lumbar Lami with decompression 04/14 PT/OT/DVT prophylaxis per primary team Pain control Remains stable following the procedure Denies any radiculopathy pain Remains medically stable and has been getting physical therapy hemoglobin remains stable at 12.2 and kidney functions stable Hx HTN: Continue amlodipine/atenolol Blood pressure remains on the lower side at 105/62 and heart rate is controlled Hx GERD: Continue pantoprazole Denies any symptoms Hx CAD: Continue aspirin Hx prediabetes: Sugar acceptable, hold metformin while hospitalized Remains medically stable with unremarkable labs We will follow along with you throughout this hospitalization Full code DVT prophylaxis: Per primary team Admission and Anticipated Discharge Date Admission Date: April 14, 2025 Subjective 04/15/2025 The patient was seen and examined in medical floor He is status post L3-S1 decompression and fusion Has been feeling much better following the procedure and denies any radiculopathic symptoms 04/16/2025 The patient was seen and examined in medical floor She has been stable without any significant back pain following the surgery She has been getting physical therapy likely discharge home tomorrow by the primary Review of Systems Review of Systems: All systems reviewed and are unremarkable except as noted below Physical Exam Physical Exam: Sitting on a chair without any acute distress Constitutional: well developed, well nourished and + ill appearing Eyes: PERRL, conjunctivae normal, anicteric sclerae ENMT: external ear and nose normal, oropharynx normal Neck: trachea midline, no thyromegaly Respiratory: no respiratory distress Auscultation: lungs clear to auscultation bilaterally Cardiovascular: Rate/Rhythm: regular rate and regular rhythm; not tachycardic Heart Sounds: normal S1 and normal S2; no murmur Extremities: no edema Gastrointestinal (Abdomen): Inspection/Auscultation: normal bowel sounds; abdomen not distended Percussion/Palpation: abdomen soft; abdomen nontender Neurologic: normal touch/pain/proprioception and deep tendon reflexes 2+ bilaterally; no focal motor deficits Lymphatic: no cervical or axillary lymphadenopathy Results & Data Results & Data Vital Signs (Past 12 Hours) Vital Signs Temp Pulse Resp BP Pulse Ox O2 Del Method 04/16/25 07:04 36.7 C 68 16 121/65 94 Room Air Laboratory Results Short CBC 04/16/25 Range/Units 06:10 WBC 13.83 H (4.8-10.8) K/ul Hgb 12.2 L (14.0-18.0) g/dl Hct 33.9 L (42.0-52.0) % Plt Count 188 (130-400) K/uL BMP 04/16/25 06:10 Sodium 134 L Potassium 4.9 Chloride 102 Carbon Dioxide 28 BUN 28 H Creatinine 0.88 Glucose 142 H Calcium 8.7 Medications Administered Current Inpatient Medications Acetaminophen (Acetaminophen 500 Mg Tab) 1,000 mg PO Q8H PRN PRN Reason: MILD Pain (1,2,3) & Pre PT Stop: 05/14/25 13:26 Al Hydrox/Mg Hydrox/Simethicone (Aluminum/Magnesium Susp 30 Ml Udc) 30 ml PO Q6H PRN PRN Reason: Dyspepsia Stop: 05/14/25 13:26 Amlodipine Besylate (Amlodipine Besylate 5 Mg Tab) 2.5 mg PO QAM SMITH Stop: 05/15/25 08:59 Last Admin: 04/16/25 08:38 Dose: 2.5 mg Aspirin (Aspirin 81 Mg Ectab) 81 mg PO HS SMITH Stop: 05/14/25 20:59 Last Admin: 04/15/25 21:01 Dose: 81 mg Atenolol (Atenolol 25 Mg Tablet) 12.5 mg PO HS SMITH Stop: 05/14/25 20:59 Last Admin: 04/15/25 21:01 Dose: 12.5 mg Bisacodyl (Bisacodyl 10 Mg Supp) 10 mg [place] DAILY PRN PRN Reason: Constipation Stop: 05/14/25 13:26 Dextrose (Dextrose 50% 50 Ml Syringe) 25 - 50 ml IV UD PRN; Protocol PRN Reason: Hypoglycemia Protocol Stop: 05/14/25 13:59 Diphenhydramine HCl (Diphenhydramine Capsule 25 Mg Cap) 25 mg PO Q6H PRN PRN Reason: Allergic Rhinitis/Insomnia Stop: 05/14/25 13:26 Famotidine (Famotidine 20 Mg Tab) 20 mg PO Q12H PRN PRN Reason: Dyspepsia Stop: 05/14/25 13:26 Glucagon (Glucagon For Inj 1 Mg Vial) 1 mg SQ UD PRN; Protocol PRN Reason: Hypoglycemia Protocol Stop: 05/14/25 13:59 Glucose (Glucose 40% Gel 15 Gm Tube) 15 - 30 gm PO UD PRN; Protocol PRN Reason: Hypoglycemia Protocol Stop: 05/14/25 13:59 Glucose (Glucose 10 Tab/Tube) 4 - 8 tab PO UD PRN; Protocol PRN Reason: Hypoglycemia Protocol Stop: 05/14/25 13:59 Hydromorphone HCl (Hydromorphone Inj 0.5 Mg/0.5 Ml Syr) 0.5 mg IV Q3H PRN PRN Reason: MODERATE Pain(4,5,6)/Pre PT Stop: 04/28/25 13:26 Hydromorphone HCl (Hydromorphone Inj 1 Mg/Ml Syringe) 1 mg IV Q3H PRN PRN Reason: SEVERE Pain (7,8,9,10) Stop: 04/28/25 13:26 Hydroxyzine HCl (Hydroxyzine Hcl 25 Mg Tab) 25 mg PO Q8H PRN PRN Reason: Anxiety Stop: 05/14/25 13:26 Cefazolin Sodium (Ancef 2000mg) 2,000 mg in 15 mls @ 3.75 mls/min IV Q8H SMITH; Protocol Stop: 04/17/25 09:03 Last Admin: 04/16/25 08:45 Dose: 3.75 mls/min Promethazine HCl (Phenergan) 12.5 mg in 50.5 mls @ 202 mls/hr IV Q6H PRN PRN Reason: Nausea And Vomiting Stop: 05/14/25 13:26 Dexamethasone 6 mg/ Syringe 1.5 mls @ 1 mls/min IV DAILY SMITH Stop: 04/17/25 09:02 Last Admin: 04/16/25 08:37 Dose: 1 mls/min Influenza Virus Vaccine Quadrival (Do Not Administer Flu Vaccine) 1 each N/A PRN PRN PRN Reason: Notification Stop: 05/14/25 13:26 Insulin Aspart (Insulin Aspart Per Unit Charge) 0 units SC ACHS SMITH Stop: 05/14/25 16:29 Last Admin: 04/16/25 12:27 Dose: 8 units Insulin Glargine (Lantus Per Unit Charge) 0 units SC HS SMITH; Protocol Stop: 05/16/25 20:59 Lorazepam (Lorazepam 0.5 Mg Tab) 0.5 mg PO Q8H PRN PRN Reason: Sedation/Anxiety Stop: 05/14/25 13:26 Lorazepam (Lorazepam 2 Mg/1 Ml Vial) 0.5 mg IV Q8H PRN PRN Reason: Sedation/Anxiety Stop: 05/14/25 13:26 Magnesium Hydroxide (Magnesium Hydroxide Susp 30 Ml Udc) 30 ml PO Q24H PRN PRN Reason: Constipation Stop: 05/14/25 13:26 Metoclopramide HCl (Metoclopramide Hcl Inj 5 Mg/Ml 2 Ml Vial) 10 mg IV Q6H PRN PRN Reason: Nausea &/or Vomiting Stop: 05/14/25 13:26 Miscellaneous (Carbohydrates For Hypoglycemia ) 15 - 30 gm PO UD PRN PRN Reason: Hypoglycemia Treatment Stop: 05/14/25 13:59 Miscellaneous Information (Pharmacy Glycemic Mgmt Consult) 1 each N/A UD PRN PRN Reason: Consult Stop: 05/14/25 13:26 Naloxone HCl (Naloxone Hcl 0.4 Mg/1 Ml Vial/Carp) 0.1 mg IV Q5M PRN PRN Reason: Oversedation/Resp depression Stop: 05/14/25 13:26 Ondansetron HCl (Ondansetron Inj 2 Mg/Ml 2 Ml Vial) 4 mg IV Q6H PRN PRN Reason: Nausea &/or Vomiting Stop: 05/14/25 13:26 Ondansetron HCl (Ondansetron 4 Mg Od Tab) 4 mg PO Q6H PRN PRN Reason: Nausea Stop: 05/14/25 13:26 Oxycodone HCl (Oxycodone Hcl Ir 5 Mg Tab (Immediate Release)) 5 - 10 mg PO Q4H PRN PRN Reason: MOD/SEV Pain & Pre PT Stop: 04/28/25 13:26 Last Admin: 04/16/25 06:01 Dose: 10 mg Pantoprazole Sodium (Pantoprazole 40 Mg Tab) 40 mg PO QAM SMITH Stop: 05/15/25 08:59 Last Admin: 04/16/25 08:38 Dose: 40 mg Pneumococcal Polyvalent Vaccine (Do Not Administer Pneumococcal Vaccine) 1 each N/A PRN PRN PRN Reason: Notification Stop: 05/14/25 13:26 Polyethylene Glycol (Polyethylene (Miralax) 17 Gm Pack) 17 gm PO Q6 SMITH Stop: 05/15/25 05:59 Last Admin: 04/16/25 12:28 Dose: 17 gm Senna/Docusate Sodium (Docusate Sodium/Senna 50/8.6mg Tab) 2 tab PO HS SMITH Stop: 05/14/25 20:59 Last Admin: 04/15/25 21:01 Dose: 2 tab Sodium Biphosphate/Sodium Phosphate (Sod Phosphate/Sod Biphosphate Enema 132 Ml Btl) 132 ml [place] ONE PRN PRN Reason: Constipation Stop: 05/14/25 13:26 Tramadol HCl (Tramadol Hcl 50 Mg Tablet) 50 - 100 mg PO Q4H PRN PRN Reason: MOD/SEV Pain & Pre PT Stop: 05/14/25 13:26 Vitamin D (Cholecalciferol 125 Mcg (5,000 Units) Tab) 125 mcg PO DAILY SMITH Stop: 05/15/25 08:59 Last Admin: 04/16/25 08:38 Dose: 125 mcg
[2025-04-16 19:51] VITALS: TEMP 97.9
[2025-04-16] MEDS: LANTUS PER UNIT CHARGE SC SCH (20:36)
[2025-04-16] MEDS: ACETAMINOPHEN 500 MG TAB PO PRN (21:31)
--- NOTE | 2025-04-17 06:36 | Orthopedic Progress Note ---
Date of Service April 17, 2025 Assessment & Plan (1) Multilevel lumbosacral spondylosis with radiculopathy: Plan: Patient doing well postoperatively. Plan for discharge home today. He has appropriate follow-up arranged With Dr. Scanlon. Admission and Anticipated Discharge Date Admission Date: April 14, 2025 Subjective The patient was seen and examined in medical floor He is status post L3-S1 decompression and fusion Has been feeling much better following the procedure and denies any radiculopathic symptoms Review of Systems Review of Systems: All systems reviewed & are unremarkable except as noted in HPI & below Physical Exam Physical Exam: sensation intact to light touch L2-S1 bilaterally. Active EHL/GSC/TA bilaterally. Bilateral feet warm and well-perfused. Results & Data Vital Signs (Past 12 Hours) Vital Signs Temp Pulse Resp BP Pulse Ox O2 Del Method 04/16/25 23:03 36.6 C 57 L 16 137/64 94 Room Air 04/16/25 19:50 36.6 C 60 16 138/67 96 Room Air
[2025-04-17 08:11] VITALS: BP 153/72; O2SAT 95
[2025-04-17 11:50] VITALS: PULSE 77
== END 2025-04-17 13:03 | disposition home health service (06) | DRG 428 ==
LOC: ASU 06:33 → 3W 10:20